=== PATIENT | male | born 1995 | race Caucasian/White ===

== ENCOUNTER 2019-01-22 23:10 | Emergency (ER) | payer OTHER ==
[~2019-01-22] VITALS: Ht 177.8 cm; Wt 76.4 kg
[2019-01-22 23:13] VITALS: BP 125/81
[2019-01-23] MEDS ORDERED: LIDOCAINE-MPF 1%, 5ML ONE (00:09)
[2019-01-23] MEDS ORDERED: BACITRACIN ZINC OINT 500U/GM, 0.9 GM ONE (01:00)
== END 2019-01-23 01:04 | disposition home or self-care (01) ==
LOC: ED 23:59
DX: S61.011A Laceration without foreign body of right thumb without damage to nail, initial encounter (principal); X58.XXXA Exposure to other specified factors, initial encounter; Y93.89 Activity, other specified; Y92.009 Unspecified place in unspecified non-institutional (private) residence as the place of occurrence of the external cause; Y99.8 Other external cause status
CPT/HCPCS: 12001; 99283